=== PATIENT | male | born 2005 | race Caucasian/White ===

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

== ENCOUNTER 2024-02-14 12:04 | Outpatient (CLI) | payer OTHER, SELFPAY ==
--- NOTE | ~2024-02-14 | XR_ITS ---
Left Knee Technique: AP, lateral, and sunrise views were obtained. Clinical History: Pain Findings: No fracture or dislocation is seen. Osseous alignment is anatomic. Joint spaces are preserv ed without degenerative or erosive change. Soft tissues are unremarkable. No joint effusion is seen. Impression: Unremarkable left knee radiographs. Reviewed, dictated and finalized at location . T BUYER Impression: Unremarkable left knee radiographs.
--- NOTE | ~2024-02-14 | XR_ITS ---
XR knee RT 3V 02/14/2024 12:18 Indication: Knee pain Procedure: 3 views right knee Comparison: No prior studies for comparison. Findings: There is anatomic alignment. No fracture, subluxation or dislocation. No significant joint effusion. No foreign bodies. Impression: 1: No significant bone or joint abnormality. Reviewed, dictated and finalized at location B. AGE SCREENER Impression: 1: No significant bone or joint abnormality.
== END 2024-02-14 12:05 | disposition home or self-care (01) ==
LOC: GOSHIMG 12:06
PROVIDERS: PCP Nurse Practitioner; Visit Provider Nurse Practitioner
DX: M25.561 Pain in right knee (principal); M25.562 Pain in left knee
CPT/HCPCS: 73562

== ENCOUNTER 2024-03-30 12:50 | Outpatient (CLI) | payer OTHER, SELFPAY ==
--- NOTE | ~2024-03-30 | MR_ITS ---
EXAMINATION: MR knee LT wo con DATE: 03/30/2024 13:34 INDICATION: Left knee pain. TECHNIQUE: Magnetic resonance imaging (MRI) of the left knee was performed without intravenous contra st. Sequences included axial PD-weighted FS FSE, coronal PD-weighted FSE and PD-weighted FS FSE, sagi ttal PD-weighted FSE, and sagittal T2-weighted FS FSE. COMPARISON: Left knee radiographs 02/14/2024 FINDINGS: Medial compartment: Medial meniscus is normal. Medial compartment cartilage is normal. Lateral compartment: Lateral meniscus is normal. Lateral compartment cartilage is normal. Patellofemoral compartment: There is deep cartilage fissuring of patellar medial and lateral facets with mild subchondral edema-l ashu marrow signal intensity. Trochlear cartilage is normal. Ligaments and tendons: The anterior and posterior cruciate ligaments are normal. Medial collateral ligament and lateral jarad ateral ligament complex are normal. There is moderate patellar tendinopathy. Fluid: There is a small knee joint effusion. There is trace fluid in a Garcia's cyst. IMPRESSION: 1. Mild patellar chondrosis. 2. Small knee joint effusion. Reviewed, dictated and finalized at location A. EATION ENGINEER
== END 2024-03-30 12:51 | disposition home or self-care (01) ==
LOC: GOSHIMG 12:50
PROVIDERS: PCP Nurse Practitioner; Visit Provider Nurse Practitioner
DX: M22.42 Chondromalacia patellae, left knee (principal); M25.462 Effusion, left knee
CPT/HCPCS: 73721